=== PATIENT | female | born 1985 | race Caucasian/White ===

== ENCOUNTER → 2018-03-23 | Outpatient (CLI) | payer BC ==
[~2018-03-23] MED LIST: IOHEXOL 350 MG/ML 100 ML (OMNIPAQUE 350) VIAL IV ONE; NAPR-915 PO; NS 250 ML (IVPB) BAG IV ONE; TRAM-42 PO
--- NOTE | 2018-03-23 17:03 | Diagnostic Imaging Report ---
PROCEDURE: CT abdomen and pelvis with contrast. TECHNIQUE: Multiple contiguous axial images were obtained through the abdomen and pelvis after administration of intravenous contrast. DATE: March 23, 2018. COMPARISON: CT abdomen without contrast October 31, 2007. INDICATION: 33-year-old female, abdominal pain, hematuria. History of endometriosis. FINDINGS: The visualized portions of the lung bases are clear. The heart is not enlarged. There is no identified pericardial effusion. The liver is normal in size and contour. There is no identified liver lesion. The main, right, and left portal veins are patent. The gallbladder is unremarkable. There is no intrahepatic or extrahepatic bile duct dilation. The main pancreatic duct is not abnormally dilated. Unremarkable appearance of the pancreatic parenchyma. The spleen is not enlarged. The adrenal glands are unremarkable. Unremarkable appearance of the renal parenchyma. The urinary collecting systems are not distended. There is no identified renal or ureteral stone. The urinary bladder is grossly unremarkable in appearance. There is nonspecific heterogeneous attenuation of the uterus. There is a peripherally enhancing low-attenuation left adnexal lesion likely relating to follicle or cyst measuring 1.7 cm in size. There is mild prominence of the pelvic vasculature, particularly on the left. There is a small amount of free pelvic fluid. The intestinal tract is not distended. The appendix is not well identified. There are no prominent secondary findings to specifically suggest acute appendicitis. There is no drainable fluid collection. There is a circumaortic left renal vein. There is no identified abnormally enlarged lymph node within the abdomen or pelvis which meets CT size criteria for adenopathy. There is no identified acute bony abnormality. There is a chronic-appearing fracture deformity of the left L1 transverse process. IMPRESSION: CT ABDOMEN AND PELVIS. 1. No identified acute abnormality within the abdomen or pelvis. 2. Small-volume free pelvic fluid which is nonspecific although potentially physiologic in etiology. Dictated by: Dictated on workstation # [id number]
== END ==
LOC: RAD 15:55
PROVIDERS: ATTEND Nurse Practitioner Family
DX: R10.9 Unspecified abdominal pain (principal); R31.9 Hematuria, unspecified; Z87.42 Personal history of other diseases of the female genital tract
CPT/HCPCS: 74177

== ENCOUNTER 2019-10-15 09:30 | Emergency (ER) | payer SELFPAY ==
[~2019-10-15] VITALS: Ht 165 cm; Wt 68.0 kg
[~2019-10-15 09:30] MED LIST changes: -IOHEXOL 350 MG/ML 100 ML (OMNIPAQUE 350) VIAL IV ONE; -NS 250 ML (IVPB) BAG IV ONE
--- NOTE | 2019-10-15 10:31 | ED General ---
General Chief Complaint: Upper Extremity Stated Complaint: CHEST PAIN Nursing Triage Note: PT STATES LT SHOULDER /ARM PAIN FOR ABOUT 2 MONTHS, NO KNOWN INJURY. NUMBNESS IN LT HAND. Nursing Sepsis Screen: No Definite Risk Source of Information: Patient Exam Limitations: No Limitations History of Present Illness Date Seen by Provider: Oct 15, 2019 Time Seen by Provider: 09:36 Initial Comments This 34-year-old woman presents to the emergency room with symptoms of pain and numbness in the left upper extremity. She has been struggling with this for a couple of months. She has shooting pain in the neck radiating down through the arm. She has numbness from the proximal elbow down through the first 3 digits any median and radial nerve distribution. She feels weak but strength does not actually appear to be reduced. She has been seen multiple times for this problem. She has been to a chiropractor, massage therapist, and her primary care provider. She has been on multiple rounds of steroids. She has been taking ibuprofen and Tylenol. None of these therapies seemed to have been very effective. She has had x-rays of the neck performed by the chiropractor. She denies any symptoms below the cervical spine dermatomes. She denies weakness in the legs, saddle paresthesia, or bowel or bladder dysfunction. She denies any trauma to her neck or prior problems with her neck. Allergies and Home Medications Allergies Coded Allergies: No Known Drug Allergies (Unverified , 11/05/16) Home Medications Gabapentin 300 Mg Capsule, 300 MG PO TID PRN for PAIN-BREAKTHROUGH Prescribed by: ROSAS SHAH on 10/15/19 1032 Hydrocodone Bit/Acetaminophen 1 Tab Tab, 1-2 EACH PO Q6H PRN for PAIN-MODERATE Prescribed by: ROSAS SHAH on 10/15/19 1032 Naproxen 500 Mg Tablet, 500 MG PO BID Prescribed by: GEETA VÁZQUEZ on 11/05/16 190 Tramadol HCl 50 Mg Tablet, 50 MG PO Q4H Prescribed by: GEETA VÁZQUEZ on 11/05/16 190 Patient Home Medication List Home Medication List Reviewed: Yes Review of Systems Review of Systems Constitutional: no symptoms reported EENTM: no symptoms reported Respiratory: no symptoms reported Cardiovascular: no symptoms reported Gastrointestinal: no symptoms reported Genitourinary: no symptoms reported Musculoskeletal: see HPI Skin: no symptoms reported Psychiatric/Neurological: See HPI Hematologic/Lymphatic: No Symptoms Reported Past Srdazcs-Ubuxyo-Lxoetz Hx Patient Social History Alcohol Use: Occasionally Uses Number of Drinks Today: AA Alcohol Beverage of Choice: Beer, Wine Recreational Drug Use: No Smoking Status: Former Smoker Type Used: Cigarettes Former Smoker, Quit: Nov 20, 2017 Recent Foreign Travel: No Contact w/Someone Who Travel: No Recent Infectious Disease Expo: No Recent Hopitalizations: No Physical Abuse: No Sexual Abuse: No Mistreated: No Fear: No Seasonal Allergies Seasonal Allergies: No Past Medical History Surgeries: Yes (nasal surgery) Breast, Hysterectomy, Tubal Ligation Respiratory: No Cardiac: No Neurological: No : No Reproductive Disorders: 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 oz. [id number]; 24.00 BMI Method:Stated General Appearance: No Apparent Distress, WD/WN HEENT: PERRL/EOMI, Normal ENT Inspection Neck: Normal Inspection, Other (subtle tenderness in the musculature of the left neck extending into the upper back) Respiratory: Lungs Clear, Normal Breath Sounds, No Accessory Muscle Use, No Respiratory Distress Cardiovascular: Regular Rate, Rhythm, No Edema, No Murmur Extremity: Normal Inspection, Other (normal director communications, sensation and range of motion of the left upper extremity. Normal radial pulse) Neurologic/Psychiatric: Alert, Oriented x3, No Motor/Sensory Deficits, Normal Mood/Affect, physicist light and optics II-XII Norm as Tested, Other (normal director communications, sensation and range of motion in the left upper extremity) Skin: Normal Color, Warm/Dry Progress/Results/Core Measures Suspected Sepsis Recent Fever Within 48 Hours: No Infection Criteria Present: None New/Unexplained Altered Menta: No Sepsis Screen: No Definite Risk SIRS Temperature: Pulse: 92 Respiratory Rate: 20 Blood Pressure 129 /84 Mean: 99 Results/Orders Vital Signs/I&O 10/15/19 10/15/19 09:38 10:33 Temp 36.9 36.9 Pulse 92 84 Resp 20 20 B/P (MAP) 129/84 (99) 132/85 (99) Pulse Ox 96 97 O2 Delivery Room Air Room Air Capillary Refill : Less Than 3 Seconds Blood Pressure Mean: 99 POS Progress Note : Progress Note Patient appears to have a cervical radiculopathy affecting the radial and medial nerve portions of the left upper extremity, possibly the C4 through C6 dermatomes. MRI is not available at this time to obtain appropriate imaging. I have suggested that she follow up closely with Dr. Smith's office to obtain an MRI. I called Dr. Smith's office and they indicated they would start working on this for her. In the meantime, I will prescribe hydrocodone and gabapentin to help her with her symptoms. Departure Impression Primary Impression: Cervical radiculopathy Disposition: HOME, SELF-CARE Condition: Stable Departure-Patient Inst. Decision time for Depature: 10:29 Referrals: NANDO SMITH DO (PCP/Family) Primary Care Physician Patient Instructions: Radiculopathy Add. Discharge Instructions: Your symptoms are suspicious for cervical radiculopathy. I suggest further evaluation with MRI of the cervical spine. Dr. SMITH's office should be able to help you arrange this. Please follow-up with them as soon as possible. In the meantime you may try hydrocodone and/or gabapentin as prescribed to control your symptoms. Please be aware both of these medications may cause drowsiness. Use with caution and do not operate machinery or drive until you're certain of side effects. Return to the emergency room if you have worsening symptoms, especially if you develop paralysis or weakness of an extremity, numbness in your groin, or difficulty producing or controlling bowel or bladder movements. All discharge instructions reviewed with patient and/or family. Voiced understanding. Scripts Hydrocodone Bit/Acetaminophen (Hydrocodone/Acetaminophen 5/325mg Tablet) 1 Tab Tab 1-2 EACH PO Q6H PRN for PAIN-MODERATE MDD 10, #15 TAB 0 Refills Prov: ROSAS BRITTON MD 10/15/19 Gabapentin (Gabapentin) 300 Mg Capsule 300 MG PO TID PRN for PAIN-BREAKTHROUGH, #15 CAP Prov: ROSAS BRITTON MD 10/15/19 Copy Copies To 1: NANDO SMITH JOSHUA T MD Oct 15, 2019 10:31 POS
[2019-10-15] MEDS ORDERED: GABA-488 PO (10:32)
[2019-10-15] MEDS ORDERED: ACHD5005 PO (10:32)
[2019-10-15 10:33] VITALS: BP 132/85
== END 2019-10-15 10:33 | disposition home or self-care (01) ==
LOC: EDUNIT# 09:30 → ER 09:33
DX: M54.12 Radiculopathy, cervical region (principal); Z87.891 Personal history of nicotine dependence; Z90.710 Acquired absence of both cervix and uterus; Z98.51 Tubal ligation status
CPT/HCPCS: 99282

== ENCOUNTER 2021-06-09 19:17 | Emergency (ER) | payer BC ==
[~2021-06-09] VITALS: Ht 165.1 cm; Wt 68.0 kg
[~2021-06-09 19:17] MED LIST changes: +ACHD5005 PO; +GABA-488 PO
[2021-06-09] MEDS ORDERED: AZIT250T12 PO (22:22)
--- NOTE | 2021-06-09 22:22 | ED Cough/URI ---
General Chief Complaint: Cough/Cold/Flu Symptoms Stated Complaint: COUGH, SOB, BODY ACHES Source: patient Exam Limitations: no limitations History of Present Illness Date Seen by Provider: Jun 09, 2021 Allergies and Home Medications Allergies Coded Allergies: No Known Drug Allergies (Unverified , 11/05/16) Home Medications Gabapentin 300 Mg Capsule, 300 MG PO TID PRN for PAIN-BREAKTHROUGH Prescribed by: ROSAS SHAH on 10/15/19 1032 Hydrocodone Bit/Acetaminophen 1 Tab Tab, 1-2 EACH PO Q6H PRN for PAIN-MODERATE Prescribed by: ROSAS SHAH on 10/15/19 1032 Naproxen 500 Mg Tablet, 500 MG PO BID Prescribed by: GEETA VÁZQUEZ on 11/05/16 190 Tramadol HCl 50 Mg Tablet, 50 MG PO Q4H Prescribed by: GEETA VÁZQUEZ on 11/05/161904 Past Winneff-Xrlpfz-Axunid Hx Seasonal Allergies Seasonal Allergies: No Past Medical History Surgeries: Yes (nasal surgery) Breast, Hysterectomy, Tubal Ligation Respiratory: No Cardiac: No Neurological: No 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 oz. [id number]; 24.00 BMI Method:Stated Progress/Results/Core Measures Suspected Sepsis SIRS Temperature: Pulse: Respiratory Rate: Blood Pressure / Mean: Results/Orders Lab Results Laboratory Tests Test 06/09/21 19:45 Range/Units Influenza Type A (RT-PCR) Not Detected Not Detecte Influenza Type B (RT-PCR) Not Detected Not Detecte SARS-CoV-2 RNA (RT-PCR) Not Detected Not Detecte Group A Streptococcus Screen NEGATIVE NEGATIVE My Orders Orders - SEVEN MERCER APRN Influenza A And B By Pcr (06/09/21 19:40) Rapid Strep A Screen (06/09/21 19:40) Covid 19 Inhouse Test (06/09/21 19:40) Chest 1 View, Ap/Pa Only (06/09/21 21:19) Vital Signs/I&O Capillary Refill : Departure Impression Primary Impression: Respiratory infection Disposition: 01 HOME, SELF-CARE Condition: Stable Departure-Patient Inst. Decision time for Depature: 22:21 Referrals: NANDO RAZA DO (PCP/Family) Primary Care Physician Patient Instructions: Atypical Pneumonia (Mycoplasma and Viral) (DC) Add. Discharge Instructions: Plan: 1. Drink plenty of fluids. 2. Take all of your antibiotics as directed and complete full course. 3. May take Tylenol or Ibuprofen as needed for pain. 4. Return for any new, concerning, or worsening symptoms. All discharge instructions reviewed with patient and/or family. Voiced understanding. Scripts Azithromycin (Azithromycin) 250 Mg Tablet 250 MG PO DAILY, #4 TAB 0 Refills Prov: SEVEN MERCER REVENUE STAMPER 06/09/21 SEVEN MERCER REVENUE STAMPER Jun 09, 2021 22:22
[2021-06-09] MEDS ORDERED: AZITHROMYCIN 250 MG TAB (ZITHROMAX) PO ONE (22:30)
[2021-06-09 22:37] VITALS: BP 117/64
--- NOTE | 2021-06-10 07:02 | Diagnostic Imaging Report ---
EXAMINATION: Chest 1 view HISTORY: Cough, shortness of breath COMPARISON: None available. FINDINGS: Heart size and pulmonary vasculature are normal. The lungs are clear without consolidation, pleural effusion, or pneumothorax. Surgical changes from cervical fusion. IMPRESSION: 1. No acute radiographic abnormality in the chest. Dictated by: Dictated on workstation # [id number]
== END 2021-06-09 22:37 | disposition home or self-care (01) ==
LOC: EDUNIT# 19:17 → ER 19:20
DX: J98.8 Other specified respiratory disorders (principal); Z20.822 Contact with and (suspected) exposure to COVID-19
CPT/HCPCS: 71045; 87430; 87636